=== PATIENT | female | born 1975 | race Caucasian/White ===

== ENCOUNTER 2018-01-14 15:04 | Outpatient (CLI) | payer BC ==
[2018-01-14 17:34] LABS: #Basophils 0.1 thou/uL (0.0-0.2); #Eosinphils 0.2 thou/uL (0.0-0.7); #Lymphocytes 1.7 thou/uL (1.20-3.40); #Monocytes 0.3 thou/uL (0.11-0.59); #Neutrophils 3.8 thou/uL (1.40-6.50); %Basophils 1.3 % (0.0-1.0); %Eosinophils 3.6 % (0.0-10.0); %Lymphocytes 28.1 % (21.0-51.0); %Monocytes 5.1 % (0.0-10.0); Hemoglobin 13.6 g/dL (12.0-16.0); Mean Corpuscular HGB CONC 33.5 g/dL (32.0-36.0); Mean Corpuscular Hemoglobin 30.6 pg (27.0-31.0); Mean Corpuscular Volume 91.2 fl (81.0-99.0); Mean Platelet Volume 7.2 fL (7.4-10.4); Platelet Count 293 thou/uL (130-400); RBC Distribution Width 10.6 % (11.5-14.5); Red Blood Cell (RBC) Count 4.45 mill/uL (4.20-5.40); White Blood Cell (WBC) Count 6.1 thou/uL (4.8-10.8)
[2018-01-14 17:35] LABS: BHCG - Serum Negative (NEGATIVE); Pregs Control Background? CLEAR/WHITE (CLR/WHITE); Pregs Control Bar Appear? YES (CONTROL BAR)
[2018-01-14 17:59] LABS: Free T4 (Free Thyroxine) 1.06 ng/dL (0.70-1.48)
== END 2018-01-14 15:05 | disposition home or self-care (01) ==
LOC: LAB 15:04
PROVIDERS: ATTEND Family Medicine
DX: N92.6 Irregular menstruation, unspecified (principal)
CPT/HCPCS: 84439; 84443; 84481; 84703; 85025

== ENCOUNTER 2022-09-20 10:47 | Outpatient (CLI) | payer BC ==
[2022-09-20 12:50] LABS: #Basophils 0.1 10x3/uL (0.0-0.2); #Eosinphils 0.5 10x3/uL (0.0-0.5); #Monocytes 0.6 10x3/uL (0.0-1.1); #Neutrophils 5.1 10x3/uL (1.5-8.4); %Basophils 0.7 % (0.0-2.0); %Lymphocytes 31.8 % (18.0-47.0); %Monocytes 6.6 % (0.0-10.0); %Neutrophils 55.6 % (40.0-75.0); Hemoglobin 13.8 g/dL (12.0-15.5); Mean Corpuscular HGB CONC 34.3 g/dL (32.0-36.0); Mean Corpuscular Hemoglobin 31.9 pg (27.0-33.0); Mean Corpuscular Volume 92.8 fl (81.6-98.3); Mean Platelet Volume 9.3 fl (7.4-10.4); Platelet Count 289 10x3/uL (150-450); RBC Distribution Width 11.9 % (11.5-14.5); Red Blood Cell (RBC) Count 4.33 10x6/uL (3.90-5.03); White Blood Cell (WBC) Count 9.1 10x3/uL (3.5-10.5)
[2022-09-20 13:15] LABS: BHCG - Serum Negative (NEGATIVE); Pregs Control Background? CLEAR/WHITE (CLR/WHITE); Pregs Control Bar Appear? YES (CONTROL BAR)
== END 2022-09-20 10:48 | disposition home or self-care (01) ==
LOC: LABBT 10:47
PROVIDERS: ATTEND Orthopaedic Surgery Hand Surgery
DX: Z01.812 Encounter for preprocedural laboratory examination (principal); D48.2 Neoplasm of uncertain behavior of peripheral nerves and autonomic nervous system
CPT/HCPCS: 84703; 85025

== ENCOUNTER 2022-09-24 09:36 | Day surgery (SDC) | payer BC ==
[2022-09-20 12:44] VITALS: BMI 29.2
[2022-09-24] MEDS ORDERED: Neomycin-Polymyxin 1 ML AMP ONE (12:46)
[2022-09-24] MEDS ORDERED: Bupivacaine PF 0.5% 30 ML VIAL ONE (12:46)
[2022-09-24] MEDS ORDERED: fentaNYL PF 100 MCG/2 ML SYRINGE ONE (13:14)
[2022-09-24] MEDS ORDERED: Sodium Chloride 0.9% 100 ML ONE (13:15)
[2022-09-24] MEDS ORDERED: CEFAZOLIN 2 GM VIAL ONE (13:15)
[2022-09-24] MEDS ORDERED: PROPOFOL 200 MG/20 ML VIAL ONE (13:38)
[2022-09-24] MEDS ORDERED: Dexamethasone 20 MG/5 ML VIAL ONE (13:38)
[2022-09-24] MEDS ORDERED: Ondansetron PF 4 MG/2 ML Vial ONE (13:38)
[2022-09-24] MEDS ORDERED: Ketorolac Tromethamine 30 MG/ML VIAL ONE (13:38)
[2022-09-24] MEDS ORDERED: Bacitracin Zinc Ointment 30 gm TUBE ONE (14:01)
== END 2022-09-24 16:10 | disposition home or self-care (01) ==
LOC: SDC 09:36
PROVIDERS: ATTEND Orthopaedic Surgery Hand Surgery
PROC: 0JBH0ZZ Excision of Left Lower Arm Subcutaneous Tissue and Fascia, Open Approach (ICD-10-PCS; principal; 2022-09-24)
DX: D36.12 Benign neoplasm of peripheral nerves and autonomic nervous system, upper limb, including shoulder (principal); Z79.899 Other long term (current) drug therapy; Z91.018 Allergy to other foods
CPT/HCPCS: 88307; 88341; 88342; 93005; 93010; J1100; J1885; J2405; J2704; J3490; S0020

== ENCOUNTER 2023-04-17 13:57 | Outpatient (CLI) | payer BC ==
[2023-04-17 15:03] LABS: #Basophils 0.1 10x3/uL (0.0-0.2); #Eosinphils 0.3 10x3/uL (0.0-0.5); #Monocytes 0.5 10x3/uL (0.0-1.1); #Neutrophils 3.9 10x3/uL (1.5-8.4); %Basophils 0.9 % (0.0-2.0); %Eosinophils 5.1 % (0.0-6.0); %Lymphocytes 28.9 % (18.0-47.0); %Monocytes 7.1 % (0.0-10.0); %Neutrophils 57.7 % (40.0-75.0); Mean Corpuscular HGB CONC 34.9 g/dL (32.0-36.0); Mean Corpuscular Hemoglobin 31.6 pg (27.0-33.0); Mean Corpuscular Volume 90.8 fl (81.6-98.3); Mean Platelet Volume 9.2 fl (7.4-10.4); Platelet Count 257 10x3/uL (150-450); Red Blood Cell (RBC) Count 4.11 10x6/uL (3.90-5.03); White Blood Cell (WBC) Count 6.7 10x3/uL (3.5-10.5)
== END 2023-04-17 13:58 | disposition home or self-care (01) ==
LOC: LABBT 13:57
PROVIDERS: ATTEND Orthopaedic Surgery Hand Surgery
DX: Z01.818 Encounter for other preprocedural examination (principal); D17.79 Benign lipomatous neoplasm of other sites
CPT/HCPCS: 85025; 93005; 93010

== ENCOUNTER 2023-04-18 07:43 | Day surgery (SDC) | payer BC ==
[2023-04-15 11:04] VITALS: BMI 28.5
[2023-04-18] MEDS ORDERED: Bacitracin Zinc Ointment 30 gm TUBE ONE (10:39)
[2023-04-18] MEDS ORDERED: Bupivacaine PF 0.5% 30 ML VIAL ONE (10:39)
[2023-04-18] MEDS ORDERED: CEFAZOLIN 2 GM VIAL ONE (11:50)
[2023-04-18] MEDS ORDERED: Sodium Chloride 0.9% 100 ML ONE (11:50)
[2023-04-18] MEDS ORDERED: fentaNYL PF 100 MCG/2 ML SYRINGE ONE (11:58)
[2023-04-18] MEDS ORDERED: PROPOFOL 200 MG/20 ML VIAL ONE (12:07)
[2023-04-18] MEDS ORDERED: Lidocaine 1% PF 5 ML VIAL ONE (12:07)
[2023-04-18] MEDS ORDERED: Dexamethasone 20 MG/5 ML VIAL ONE (12:07)
[2023-04-18] MEDS ORDERED: Ondansetron PF 4 MG/2 ML Vial ONE (12:07)
[2023-04-18] MEDS ORDERED: ePHEDrine Sulfate 50 MG/10 ML VIAL ONE (12:07)
[2023-04-18] MEDS ORDERED: Ketorolac Tromethamine 30 MG/ML VIAL ONE ×2 (12:07→13:16)
== END 2023-04-18 15:00 | disposition home or self-care (01) ==
LOC: SDC 07:43
PROVIDERS: ATTEND Orthopaedic Surgery Hand Surgery
PROC: 0JBD0ZZ Excision of Right Upper Arm Subcutaneous Tissue and Fascia, Open Approach (ICD-10-PCS; principal; 2023-04-18)
DX: D17.21 Benign lipomatous neoplasm of skin and subcutaneous tissue of right arm (principal); D48.2 Neoplasm of uncertain behavior of peripheral nerves and autonomic nervous system; M77.11 Lateral epicondylitis, right elbow; Z88.8 Allergy status to other drugs, medicaments and biological substances
CPT/HCPCS: 88304; J1100; J1885; J2405; J2704; J3490; S0020

== ENCOUNTER 2024-04-16 14:56 | Outpatient (CLI) | payer BC | END 2024-04-16 14:57 | disposition home or self-care (01) | LOC: SCSRAD 14:56 | PROVIDERS: ATTEND Family Medicine | DX: M54.2 Cervicalgia (principal); M41.9 Scoliosis, unspecified; M47.812 Spondylosis without myelopathy or radiculopathy, cervical region | CPT/HCPCS: 72040 ==